=== PATIENT | female | born 2000 | race Caucasian/White ===

== ENCOUNTER 2019-09-02 10:53 | Emergency (ER) | payer OTHER ==
[2019-09-02] MEDS ORDERED: IBUPROFEN 600 MG TABLET PO ONE (11:22)
--- NOTE | 2019-09-02 11:23 | ER Document Report ---
HPI - HPI Pain Level: 4 Context: Patient is a 18-year-old female who presents to the emergency department with a chief complaint of left posterior upper leg pain. She was at the gym last night and she did a cartwheel and went into the splits because she used to do gymnastics. When she ended up doing her cartwheel and got up she heard a pop. Since then she has had pain in her medial posterior leg. Weightbearing hurts. Past medical history includes polycystic kidney disease. She is currently not on any medications, but took Tylenol yesterday. - CONSTITUTIONAL Constitutional: DENIES: Fever, Chills - EENT EENT: DENIES: Sore Throat, Ear Pain, Nasal Drainage-Clear, Congestion, Eye problems - NEURO Neurology: DENIES: Headache - CARDIOVASCULAR Cardiovascular: DENIES: Chest pain - RESPIRATORY Respiratory: DENIES: Coughing - GASTROINTESTINAL Gastrointestinal: DENIES: Nausea, Patient vomiting - REPRODUCTIVE Reproductive: DENIES: : - MUSCULOSKELETAL Musculoskeletal: REPORTS: Extremity pain - right upper leg - DERM Skin Color: Normal Skin Problems: None <YU BUTT - Last Filed: 09/02/19 11:21> <JOHN CROCKER - Last Filed: 09/02/19 18:06> - HPI Time Seen by Provider: 09/02/19 11:17 Past Medical History - Social History Smoking Status: Never Smoker Chew tobacco use (# tins/day): No Frequency of alcohol use: None Drug Abuse: None Patient has suicidal ideation: No Patient has homicidal ideation: No <YU BUTT - Last Filed: 09/02/19 11:21> - General Information source: Patient - Social History Family History: Reviewed & Not Pertinent - Medical History Medical History: Negative Surgical Hx: Negative <JOHN CROCKER - Last Filed: 09/02/19 18:06> Vertical Provider Document - INFECTION CONTROL TRAVEL OUTSIDE OF THE [place] IN LAST 30 DAYS: No <YU BUTT - Last Filed: 09/02/19 11:21> - CONSTITUTIONAL Notes: PHYSICAL EXAMINATION: GENERAL: Well-appearing, well-nourished and in no acute distress. HEAD: Atraumatic, normocephalic. EYES: Pupils equal round extraocular movements intact, conjunctiva are normal. ENT: Nares patent NECK: Normal range of motion LUNGS: No respiratory distress Musculoskeletal: Limited range of motion due to left lower extremity due to pain. No crepitus or deformity noted on palpation of left knee. Slight swelling noted to posterior left knee. Strong popliteal and dorsalis pedis pulse. NEUROLOGICAL: Normal speech. PSYCH: Normal mood, normal affect. SKIN: Warm, Dry, normal turgor, no rashes or lesions noted. <JOHN CROCKER - Last Filed: 09/02/19 18:06> Course - Vital Signs Vital signs: Temp Pulse Resp BP Pulse Ox 98.2 F 85 15 158/98 H 100 09/02/19 10:59 09/02/19 10:59 09/02/19 10:59 09/02/19 10:59 09/02/19 10:59 <YU BUTT - Last Filed: 09/02/19 11:21> - Re-evaluation Re-evalutation: Femur X-Ray 09/02/19 11:20 IMPRESSION: NEGATIVE STUDY OF THE LEFT FEMUR. NO RADIOGRAPHIC EVIDENCE OF ACUTE INJURY. Hip X-Ray 09/02/19 11:20 IMPRESSION: NEGATIVE STUDY OF THE LEFT HIP AND PELVIS. NO RADIOGRAPHIC EVIDENCE OF ACUTE INJURY. X-rays negative as outlined above. Cannot exclude ligament or tendon injury. Patient will be referred to orthopedics. Patient verbalizes understanding and agreement with this plan. The patient's emergency department workup and current diagnosis were explained to the patient and or family. Follow-up instructions were provided. Medications if prescribed were discussed. Instructions for when to return to the emergency department including specific worrisome symptoms were discussed with the patient and/or family. - Vital Signs Vital signs: Temp Pulse Resp BP Pulse Ox 98.2 F 85 15 158/98 H 100 09/02/19 10:59 09/02/19 10:59 09/02/19 10:59 09/02/19 10:59 09/02/19 10:59 <JOHN CROCKER - Last Filed: 09/02/19 18:06> Procedures - Immobilization Left leg Pre-Proc Neuro Vasc Exam: Normal Immobilizer type: Star wrap Performed by: PCT Post-Proc Neuro Vasc Exam: Normal Alignment checked and good: Yes <JOHN CROCKER - Last Filed: 09/02/19 18:06> Discharge <YU BUTT - Last Filed: 09/02/19 11:21> <JHON CROCKER - Last Filed: 09/02/19 18:06> - Discharge Clinical Impression: Musculoskeletal strain Condition: Stable Disposition: HOME, SELF-CARE Additional Instructions: Muscle Strain You have strained a muscle -- torn the fibers within the muscle. This often occurs with strenuous exertion, or during an injury that suddenly stretches the muscle. The seriousness of a strain varies. Some strains heal within days, others cause problems for months. X-rays cannot show a muscle strain. X-rays are taken only if symptoms suggest that a fracture could be present. The usual treatment of a muscle strain is rest and ice packs. Sometimes, a sling, splint, or crutches may be necessary to rest the muscle. The muscle can be used again once pain subsides. Severe strains require a special exercise and stretching program to prevent permanent stiffness and disability. Your doctor will advise you if this will be necessary. Call the doctor immediately if pain or swelling becomes severe, or if numbness or discoloration develop. Ice & Elevation Apply ice packs frequently against the painful area. Many different schedules are recommended, such as "20 minutes on, 20 minutes off" or "one hour ice, two hours rest." If you need to work, you may need to go longer between ice treatments. You should plan to have the area ice packed AT LEAST one-fourth of the time. The ice should be applied over the wrap, tape, or splint, or over a layer of cloth -- not directly against the skin. Some ice bags have a built-in cloth and can be put directly on the skin. Your injured part should be elevated as much as possible over the next 48 hours. Try to keep the injury above the level of the heart. Avoid use of the injured area. Elevation and rest will decrease the swelling. Ibuprofen Ibuprofen is an excellent, safe drug for pain control. In addition, it has potent antiinflammatory effects which are beneficial, especially in the treatment of injuries, arthritis, or tendonitis. It's best to take ibuprofen with food. Persons with ulcer disease or allergy to aspirin should notify their physician of this before taking ibuprofen. Take the medication exactly as prescribed. Don't take additional doses unless instructed to do so by your doctor. If you develop wheezing, shortness of breath, hives, faintness, stomach pain, vomiting, or dark black stools, return for re-evaluation at once. The x-rays were negative for any fracture or dislocation. Please take ibuprofen [id number] as directed to help with pain and inflammation. Take the muscle relaxer as prescribed. Follow-up with orthopedics if pain not improved over the next 5 to 7 days. Prescriptions: Methocarbamol [Robaxin 500 mg Tablet] 500 mg PO QID #20 tablet Forms: Return to Work Referrals: IAN PRATHER MD [NO LOCAL MD] - Follow up as needed
--- NOTE | 2019-09-02 12:41 | RADIOLOGY REPORT (SQ) ---
EXAM DESCRIPTION: FEMUR LEFT COMPLETED DATE/TIME: 09/02/2019 12:28 pm REASON FOR STUDY: upper leg pain COMPARISON: None. NUMBER OF VIEWS: Two views. TECHNIQUE: Two radiographic images acquired of the left femur to include hip and knee in at least on e projection. LIMITATIONS: None. FINDINGS: MINERALIZATION: Normal. BONES: No acute fracture. No worrisome bone lesions. SOFT TISSUES: No obvious swelling or foreign body. OTHER: No other significant finding. IMPRESSION: NEGATIVE STUDY OF THE LEFT FEMUR. NO RADIOGRAPHIC EVIDENCE OF ACUTE INJURY. TECHNICAL DOCUMENTATION: JOB ID: [id number] [employer]- All Rights Reserved Reading location - IP/workstation name: [email or web address]
--- NOTE | 2019-09-02 12:41 | RADIOLOGY REPORT (SQ) ---
EXAM DESCRIPTION: HIP LEFT AP/LATERAL COMPLETED DATE/TIME: 09/02/2019 12:28 pm REASON FOR STUDY: upper leg pain; please include femur too COMPARISON: None. NUMBER OF VIEWS: Two views. TECHNIQUE: AP pelvis and additional frog-leg view of the left hip. LIMITATIONS: None. FINDINGS: MINERALIZATION: Normal. LEFT HIP: No fracture or dislocation. No worrisome bone lesions. RIGHT HIP: No fracture or dislocation. No worrisome bone lesions. PUBIS AND ISCHIUM: No fracture. PELVIS: No fracture. SACRUM: No fracture or dislocation. No worrisome bone lesions. LOWER LUMBAR SPINE: No fracture or dislocation. No worrisome bone lesions. No significant disc disea se. SOFT TISSUES: No findings. OTHER: No other significant finding. IMPRESSION: NEGATIVE STUDY OF THE LEFT HIP AND PELVIS. NO RADIOGRAPHIC EVIDENCE OF ACUTE INJURY. TECHNICAL DOCUMENTATION: JOB ID: [id number] [employer]- All Rights Reserved Reading location - IP/workstation name: [email or web address]
[2019-09-02 13:43] VITALS: BP 156/80
== END 2019-09-02 13:41 | disposition home or self-care (01) ==
LOC: ER 10:53
DX: S76.912A Strain of unspecified muscles, fascia and tendons at thigh level, left thigh, initial encounter (principal); X50.0XXA Overexertion from strenuous movement or load, initial encounter; Y93.43 Activity, gymnastics; Y92.39 Other specified sports and athletic area as the place of occurrence of the external cause
CPT/HCPCS: 99283

== ENCOUNTER 2020-01-16 11:41 | Emergency (ER) | payer OTHER, MEDICAID ==
[2020-01-16] MEDS ORDERED: DIPHENHYDRAMINE HCL 25 MG CAPSULE PO ONE (12:43)
[2020-01-16] MEDS ORDERED: DEXAMETHASONE 4 MG TABLET PO ONE (12:43)
--- NOTE | 2020-01-16 12:45 | ER Document Report ---
HPI - HPI Time Seen by Provider: 01/16/20 12:37 Pain Level: 3 Notes: CHIEF COMPLAINT: Difficulty swallowing today HPI: 19-year-old female presenting to the emergency department complaining of a sensation of something in the back of her throat actually began last night but is more prominent today no definitive fever. Complains of mild sore throat. No voice change ROS: See HPI - all other systems were reviewed and are otherwise negative Constitutional: no fever Eyes: no drainage, no blurred vision ENT: no runny nose, + sore throat Cardiovascular: no chest pain Resp: no SOB, no cough GI: no vomiting, no diarrhea, no abdominal pain : no dysuria Integumentary: no rash Allergy: no hives Musculoskeletal: no extremity pain or swelling Neurological: no numbness/tingling MEDICATIONS: I agree with the patient medications as charted by the RN. ALLERGIES: I agree with the allergies as charted by the RN. PAST MEDICAL HISTORY/PAST SURGICAL HISTORY: Reviewed and agree as charted by RN. SOCIAL HISTORY: Reviewed and agree as charted by RN. FAMILY HISTORY: No significant familial comorbid conditions directly related to patient complaint EXAM: Reviewed vital signs as charted by RN. CONSTITUTIONAL: Alert and oriented and responds appropriately to questions. Well-appearing; well-nourished HEAD: Normocephalic; atraumatic EYES: PERRL; Conjunctivae clear, sclerae non-icteric ENT: normal nose; no rhinorrhea; moist mucous membranes; pharynx without lesions noted, no deviation of the uvula but there is some edema to the uvula, not significantly erythematous, no tonsillar hypertrophy, phonation normal NECK: Supple without meningismus; non-tender; no cervical lymphadenopathy, no masses CARD: RRR; no murmurs, no clicks, no rubs, no gallops RESP: Normal chest excursion without splinting or tachypnea; breath sounds clear and equal bilaterally; no wheezes, no rhonchi, no rales ABD/GI: non-distended. BACK: The back appears normal EXT: Normal ROM in all joints; no cyanosis, no effusions, no edema SKIN: Normal color for age and race; warm; dry; good turgor NEURO: Moves all extremities equally; Motor and sensory function intact PSYCH: The patient's mood and manner are appropriate. Grooming and personal hygiene are appropriate. MDM: 19-year-old female with what appears to be uvulitis. Will check strep and mono, give Decadron Benadryl - CONSTITUTIONAL Constitutional: DENIES: Fever, Chills - EENT EENT: REPORTS: Sore Throat - REPRODUCTIVE Reproductive: DENIES: : Past Medical History - Social History Smoking Status: Unknown if Ever Smoked Family History: Reviewed & Not Pertinent Patient has suicidal ideation: No Patient has homicidal ideation: No Vertical Provider Document - INFECTION CONTROL TRAVEL OUTSIDE OF THE [place] IN LAST 30 DAYS: No Course - Re-evaluation Re-evalutation: 01/16/20 13:30 Winn and strep are both negative, discussed with the patient likely viral etiology will continue antihistamines, Benadryl, Pepcid or Zantac. Will refer to ENT follow-up return instructions discussed - Vital Signs Vital signs: Temp Pulse Resp BP Pulse Ox 98.3 F 62 18 121/73 100 01/16/20 12:18 01/16/20 12:18 01/16/20 12:18 01/16/20 12:18 01/16/20 12:18 Discharge - Discharge Clinical Impression: Uvulitis Condition: Stable Disposition: HOME, SELF-CARE Additional Instructions: Continue Benadryl 25 mg 3 times daily for the next 3 days. Take Pepcid 20 mg twice daily or Zantac 75 mg twice daily for the next 5 days. These are o [id number] medications. Follow-up with ENT as needed for continued symptoms return for shortness of breath or difficulty swallowing Referrals: WASHINGTON FORDE DO [ASSOCIATE] - Follow up as needed
[2020-01-16 14:06] VITALS: BP 128/76
== END 2020-01-16 14:06 | disposition home or self-care (01) ==
LOC: ER 11:41
DX: K12.2 Cellulitis and abscess of mouth (principal); J02.9 Acute pharyngitis, unspecified; R13.10 Dysphagia, unspecified
CPT/HCPCS: 99283; 36415; 87070; 87880; 86308; J8540